=== PATIENT | male | born 1965 | race Caucasian/White ===

== ENCOUNTER → 2016-11-25 | Outpatient (CLI) | payer BC, OTHER ==
--- NOTE | 2016-11-25 16:05 | REP ---
Left knee four views: There are no comparisons. The medial, lateral patellofemoral joint spaces are normally maintained. There are small osteophytes at the medial joint line compatible with mild osteoarthritis. There are no calcifications. There is no fracture or dislocation. I suspect there is an effusion in the suprapatellar pouch. This should be confirmed by clinical palpation. Impression: Mild medial compartment osteoarthritis. Question suprapatellar effusion. This should be confirmed by clinical palpation. Signed by Hilton Santamaria MD 11/25/2016 03:56 P
== END ==
LOC: M ADAMS 15:26
PROVIDERS: ATTEND Physician Assistant Medical
DX: M25.562 Pain in left knee (principal)

== ENCOUNTER 2018-09-27 14:50 | Emergency (ER) | payer BC, OTHER ==
[~2018-09-27] VITALS: Ht 170.2 cm; Wt 111.4 kg
[2018-09-27] MEDS ORDERED: NAPR-837 PO (15:57)
[2018-09-27] MEDS ORDERED: CYCL10TA PO (15:57)
[2018-09-27 16:28] VITALS: BP 154/96
== END 2018-09-27 16:37 | disposition home or self-care (01) ==
LOC: M ED 14:50
DX: M62.830 Muscle spasm of back (principal); M54.5 Low back pain; Z88.0 Allergy status to penicillin

== ENCOUNTER 2018-10-18 11:18 | Emergency (ER) | payer OTHER ==
[~2018-10-18] VITALS: Ht 170.2 cm; Wt 117.4 kg
[~2018-10-18 11:18] MED LIST: CYCL10TA PO; NAPR-837 PO
[2018-10-18 12:00] LABS: BASO % 0.3 % (0.0-1.0); HEMATOCRIT 49.6 % (42.0-52.0); HEMOGLOBIN 16.5 g/dl (13.5-17.5); LYMPH # 1.1 10^3/uL (1.5-4.5); LYMPH % 10.5 % (24.0-44.0); MEAN CORPUSCULAR HEMOGLOBIN 30.4 pg (27.0-33.0); MEAN CORPUSCULAR HGB CONC 33.3 g/dl (32.0-36.5); MEAN CORPUSCULAR VOLUME 91.3 fl (80.0-96.0); MONO # 0.7 10^3/uL (0.0-0.8); MONO % 7.1 % (0.0-5.0); NEUTROPHILS # 8.5 10^3/uL (1.8-7.7); NEUTROPHILS % 81.8 % (36.0-66.0); PLATELET COUNT, AUTOMATED 213 10^3/uL (150-450); RED BLOOD COUNT 5.43 10^6/uL (4.30-6.10); WHITE BLOOD COUNT 10.4 10^3/uL (4.0-10.0)
[2018-10-18 12:28] LABS: ALBUMIN 3.9 GM/DL (3.2-5.2); BILIRUBIN,DIRECT 0.1 MG/DL (0.0-0.2); BILIRUBIN,TOTAL 0.4 MG/DL (0.2-1.0); CALCIUM LEVEL 9.7 MG/DL (8.5-10.1); CREATININE FOR GFR 1.84 MG/DL (0.70-1.30); GLOMERULAR FILTRATION RATE 40.9 (>56); POTASSIUM SERUM 4.6 MEQ/L (3.5-5.1); TOTAL PROTEIN 7.6 GM/DL (6.4-8.2)
[2018-10-18] MEDS ORDERED: NS 1,000 ML IV ONE (12:45)
[2018-10-18] MEDS: GASTROGRAFIN SOLUTION 30ML PO SCH ×2 (14:27→14:39)
[2018-10-18] MEDS ORDERED: MORPHINE 4 MG/ML 1ML VIAL/SYRINGE (J2270) IV ONE (14:45)
[2018-10-18] MEDS ORDERED: ONDANSETRON 4MG/2ML VIAL (J2405) IV ONE (14:45)
[2018-10-18] MEDS ORDERED: FLOM0.4C39 PO (14:55)
[2018-10-18] MEDS ORDERED: ONDA4TAB6 PO (14:55)
[2018-10-18] MEDS ORDERED: PERC5TAB12 PO (14:55)
--- NOTE | 2018-10-18 14:58 | REP ---
CT ABDOMEN AND PELVIS WITHOUT CONTRAST: CT abdomen and pelvis performed without oral or IV contrast. Sagittal and coronal reconstruction images are performed. Visualized lung bases demonstrate no infiltrate. The liver, spleen, adrenals, and pancreas are grossly unremarkable. There is mild right hydroureteronephrosis caused by a 3 mm stone in the distal right ureter. There is no left renal or ureteral calculus and no left hydronephrosis. There is atherosclerotic calcification of the abdominal aorta without aneurysm. There is no adenopathy. There is no free air or free fluid. There is no bowel wall thickening. Small calcification is seen in the head of the pancreas. Scattered diverticula are seen of the colon without acute diverticulitis. No pelvic mass is seen. IMPRESSION: There is a 3 mm calculus in the distal right ureter causing mild right hydroureteronephrosis. Normal appendix. No free air or free fluid. Electronically Signed by Hilton Hurley MD 10/18/2018 04:45 P
[2018-10-18 15:11] VITALS: BP 194/114
== END 2018-10-18 15:26 | disposition home or self-care (01) ==
LOC: M ED 11:18
DX: N20.1 Calculus of ureter (principal); E86.0 Dehydration; Z88.0 Allergy status to penicillin; F17.210 Nicotine dependence, cigarettes, uncomplicated
CPT/HCPCS: 36415; 74176; 80048; 80076; 81001; 83690; 85025; 96361; 96374; 96375; 99284; J2270; J2405; Q9963

== ENCOUNTER → 2018-11-19 | Outpatient (CLI) | payer OTHER ==
[~2018-11-19] MED LIST changes: +FLOM0.4C39 PO; +ONDA4TAB6 PO; +PERC5TAB12 PO
== END ==
LOC: M SMT 13:51
PROVIDERS: ATTEND Nurse Practitioner Women's Health
DX: Z12.5 Encounter for screening for malignant neoplasm of prostate (principal)
CPT/HCPCS: 36415; G0103

== ENCOUNTER → 2018-11-19 | Outpatient (REF) | payer OTHER ==
[2018-11-19 19:17] LABS: APPEARANCE, URINE CLEAR (CLEAR); BACTERIA, URINE AUTO NEGATIVE (NEGATIVE); BILIRUBIN, URINE AUTO NEGATIVE (NEGATIVE); BLOOD, URINE BLOOD 1+ (NEGATIVE); CALCIUM OXALATE CRYSTALS MODERATE; COLOR, URINE YELLOW (YELLOW); GLUCOSE, URINE (UA) AUTO NEGATIVE (NEGATIVE); KETONE, URINE AUTO TRACE mg/dL (NEGATIVE); LEUKOCYTE ESTERASE, URINE AUTO NEGATIVE (NEGATIVE); MUCUS, URINE SMALL (NEGATIVE); NITRITE, URINE AUTO NEGATIVE (NEGATIVE); PROTEIN, URINE AUTO NEGATIVE (NEGATIVE); RBC, URINE AUTO 3 /HPF (0-3); SPECIFIC GRAVITY URINE AUTO 1.023 (1.002-1.035); SQUAMOUS EPITHELIAL CELL UR AU 0 /HPF (0-6); UROBILINOGEN, URINE AUTO 0.2 mg/dL (0.0-2.0); WBC, URINE AUTO 2 /HPF (0-3)
== END ==
LOC: M SMT 18:08
PROVIDERS: ATTEND Nurse Practitioner Women's Health
DX: N13.2 Hydronephrosis with renal and ureteral calculous obstruction (principal)

== ENCOUNTER → 2019-01-22 | Outpatient (CLI) | payer OTHER ==
--- NOTE | 2019-01-23 03:32 | REP ---
Clinical: Paresthesia. Technique: AP, lateral, flexion/extension, swimmer's, bilateral oblique, and open-mouth views of the cervical spine. Findings: Alignment is maintained and there is no evidence for acute fracture / compression injury or subluxation. Moderate focal degenerative disc osteophyte complex at C6-7 and to a lesser extent C5-6 and C7-T1 include early osteophyte formation, endplate sclerosis and minimal disc space narrowing. Remainder examination appears normal. Neural foramen are patent bilaterally. Open mouth view demonstrates normal C1-C2 articulation and odontoid process. Impression: Moderate focal degenerative spondylosis centered at C6-7 including C5-6 and C7-T1. Electronically Signed by Valdemar Cobian MD 01/23/2019 03:23 A
== END ==
LOC: M ADAMS 11:01
PROVIDERS: ATTEND Physician Assistant Medical
DX: M47.812 Spondylosis without myelopathy or radiculopathy, cervical region (principal); M47.813 Spondylosis without myelopathy or radiculopathy, cervicothoracic region

== ENCOUNTER → 2019-01-22 | Outpatient (REF) | payer OTHER ==
[2019-01-22 13:08] LABS: BASO # 0.1 10^3/uL (0.0-0.2); BASO % 0.7 % (0.0-1.0); EOS # 0.2 10^3/uL (0.0-0.5); EOS % 2.2 % (0.0-3.0); HEMATOCRIT 48.2 % (42.0-52.0); HEMOGLOBIN 15.6 g/dl (13.5-17.5); LYMPH # 1.6 10^3/uL (1.5-5.0); LYMPH % 23.6 % (24.0-44.0); MEAN CORPUSCULAR HEMOGLOBIN 29.7 pg (27.0-33.0); MEAN CORPUSCULAR HGB CONC 32.4 g/dl (32.0-36.5); MEAN CORPUSCULAR VOLUME 91.6 fl (80.0-96.0); MONO # 0.7 10^3/uL (0.0-0.8); MONO % 9.7 % (0.0-5.0); NEUTROPHILS # 4.2 10^3/uL (1.5-8.5); NEUTROPHILS % 63.4 % (36.0-66.0); PLATELET COUNT, AUTOMATED 227 10^3/uL (150-450); RED BLOOD COUNT 5.26 10^6/uL (4.30-6.10); WHITE BLOOD COUNT 6.7 10^3/uL (4.0-10.0)
[2019-01-22 13:45] LABS: ALBUMIN 3.7 GM/DL (3.2-5.2); BILIRUBIN,TOTAL 0.5 MG/DL (0.2-1.0); CALCIUM LEVEL 9.2 MG/DL (8.5-10.1); CHOLESTEROL RISK RATIO 4.34 (<5); CREATININE FOR GFR 1.33 MG/DL (0.70-1.30); GLOMERULAR FILTRATION RATE 59.4 (>56); POTASSIUM SERUM 4.7 MEQ/L (3.5-5.1); THYROID STIMULATING HORMONE 1.35 uIU/ML (0.358-3.740); URIC ACID 5.6 MG/DL (3.5-7.2)
== END ==
LOC: M SFHCADAM 10:42
PROVIDERS: ATTEND Physician Assistant Medical
DX: N13.2 Hydronephrosis with renal and ureteral calculous obstruction (principal); F17.210 Nicotine dependence, cigarettes, uncomplicated; E66.01 Morbid (severe) obesity due to excess calories; I10 Essential (primary) hypertension; R20.2 Paresthesia of skin

== ENCOUNTER → 2019-01-28 | Outpatient (CLI) | payer OTHER ==
--- NOTE | 2019-01-30 22:52 | ECHO ---
DATE OF PROCEDURE: 01/29/2019 AGE: 53 GENDER: Male HEIGHT: 67 inches WEIGHT: 250 pounds BODY SURFACE AREA: 2.22 m2 PATIENT LOCATION: Outpatient REFERRING PHYSICIAN: ROBERTO Scott INDICATION: Edema. 2-D MEASUREMENTS: RV: 3.1 cm LV: 5.0 cm Septum: 1.1 cm Posterior wall: 1.1 cm Aortic root: 3.2 cm LA: 4.2 cm LVEF: 75% DOPPLER MEASUREMENTS: AV: 1.5 m/s LVOT: 1.0 m/s LVOT diameter: 2.0 cm MV-E: 97, A: 114, EA ratio: 0.9 Early mitral deceleration time: 225 milliseconds E prime: 9.6, A prime: 13, E/E prime ratio: 10 PCWP: 15.3 mmHg PV: 0.8 m/s Pulmonary artery acceleration time: 113 ms PASP: 28 mmHg IVC: 1.2 cm COMMENTS Normal sinus rhythm with interventricular conduction disturbance. Technically difficult study in light of the patient's body habitus, but some diagnostically useful information was still obtained. M-mode and two-dimensional echocardiography was performed with pulsed, continuous wave, color flow and tissue Doppler studies. Normal left ventricular size with wall thickness upper limits of normal with hyperkinetic wall motion. Mildly dilated left atrium with Doppler evidence of an impairment of LV diastolic function and currently estimated mean left atrial pressure was only mildly increased. Normal right heart chamber sizes and wall motion with currently normal estimated pulmonary arterial pressure. Normal IVC size and collapse against an elevated central venous pressure. Normal appearing and functioning valvular structures. Normal aortic root size. No apparent intracardiac mass or pericardial effusion.
== END ==
LOC: M CARPUL 08:59
PROVIDERS: ATTEND Physician Assistant Medical
DX: N18.3 Chronic kidney disease, stage 3 (moderate) (principal)

== ENCOUNTER → 2019-01-29 | Outpatient (CLI) | payer OTHER ==
--- NOTE | 2019-01-30 07:34 | REP ---
Clinical: Chronic medical renal disease stage III. Technique: Real time galicia scale ultrasound examination using curved array transducer. Findings: Bilateral kidneys are normal in contour, size, echogenicity, and reniform shape without hydronephrosis, nephrolithiasis, cystic or renal mass lesion. Right kidney measures 10.6 x 5.3 x 5.4 cm. Left kidney measures 11.1 x 4.3 x 5.4 cm. The bladder is normal in appearance without wall thickening or mass lesion. Bilateral ureteral jets noted. Impression: Normal renal ultrasound. Electronically Signed by Valdemar Cobian MD 01/30/2019 07:25 A
== END ==
LOC: M RAD 14:44
PROVIDERS: ATTEND Physician Assistant Medical
DX: N18.3 Chronic kidney disease, stage 3 (moderate) (principal); R60.9 Edema, unspecified

== ENCOUNTER → 2019-09-16 | Outpatient (CLI) | payer OTHER ==
[~2019-09-16] MED LIST changes: +CYCL-707 PO; -CYCL10TA PO
--- NOTE | 2019-09-16 19:41 | REP ---
Clinical: Right shoulder pain. Technique: Internal rotation, external rotation, and Y view of the right shoulder. Findings: Acromioclavicular joint appears normal and age-appropriate. Subtle blunting to the calcified glenoid rim and possible early spurring versus overlying loose body. No acute fracture or dislocation. Subacromial space is normal. Overlying soft tissues normal. Impression: Cannot exclude degenerative changes involving the glenoid with possible overlying loose body. If the patient remains symptomatic consider MRI for further investigation. Electronically Signed by Valdemar Cobian MD 09/16/2019 07:32 P
== END ==
LOC: M ADAMS 16:29
PROVIDERS: ATTEND Physician Assistant Medical
DX: M25.511 Pain in right shoulder (principal)

== ENCOUNTER → 2019-09-17 | Outpatient (REF) | payer OTHER ==
[2019-09-17 14:32] LABS: ALBUMIN 3.7 GM/DL (3.2-5.2); BILIRUBIN,TOTAL 0.3 MG/DL (0.2-1.0); CALCIUM LEVEL 9.6 MG/DL (8.5-10.1); CHOLESTEROL RISK RATIO 3.38 (<5); CREATININE FOR GFR 1.33 MG/DL (0.70-1.30); GLOMERULAR FILTRATION RATE 59.2 (>56); POTASSIUM SERUM 4.4 MEQ/L (3.5-5.1); THYROID STIMULATING HORMONE 2.07 uIU/ML (0.358-3.740); TOTAL PROTEIN 7.2 GM/DL (6.4-8.2)
[2019-09-17 15:40] LABS: HEMOGLOBIN A1c 6.4 %
== END ==
LOC: M SFHCADAM 10:07
PROVIDERS: ATTEND Physician Assistant Medical
DX: R73.03 Prediabetes (principal); N18.3 Chronic kidney disease, stage 3 (moderate); E78.2 Mixed hyperlipidemia; I50.32 Chronic diastolic (congestive) heart failure

== ENCOUNTER → 2020-07-02 | Outpatient (REF) | payer OTHER ==
[2020-07-02 14:16] LABS: THYROID STIMULATING HORMONE 1.45 uIU/ML (0.358-3.740); TOTAL 25(OH) VITAMIN D 13.6 NG/ML (30.0-100.0)
[2020-07-02 14:19] LABS: MALB URINE SIEMENS 66.3 MG/L; MAU/CREAT RATIO 15.4 MCG/MG (0.0-30.0)
== END ==
LOC: M SFHCADAM 09:47
PROVIDERS: ATTEND Physician Assistant Medical
DX: R73.03 Prediabetes (principal); I12.9 Hypertensive chronic kidney disease with stage 1 through stage 4 chronic kidney disease, or unspecified chronic kidney disease; F17.210 Nicotine dependence, cigarettes, uncomplicated; N18.31 Chronic kidney disease, stage 3a

== ENCOUNTER → 2020-07-17 | Outpatient (REF) | payer OTHER ==
[2020-07-17 13:09] LABS: BASO # 0.1 10^3/uL (0.0-0.2); BASO % 0.7 % (0.0-1.0); EOS # 0.2 10^3/uL (0.0-0.5); EOS % 2.3 % (0.0-3.0); HEMATOCRIT 51.7 % (42.0-52.0); HEMOGLOBIN 16.5 g/dl (13.5-17.5); LYMPH # 1.8 10^3/uL (1.5-5.0); LYMPH % 23.8 % (24.0-44.0); MEAN CORPUSCULAR HEMOGLOBIN 29.8 pg (27.0-33.0); MEAN CORPUSCULAR HGB CONC 31.9 g/dl (32.0-36.5); MEAN CORPUSCULAR VOLUME 93.3 fl (80.0-96.0); MONO # 0.8 10^3/uL (0.0-0.8); MONO % 11.3 % (2.0-8.0); NEUTROPHILS # 4.5 10^3/uL (1.5-8.5); NEUTROPHILS % 61.6 % (36.0-66.0); PLATELET COUNT, AUTOMATED 227 10^3/uL (150-450); RED BLOOD COUNT 5.54 10^6/uL (4.30-6.10); WHITE BLOOD COUNT 7.3 10^3/uL (4.0-10.0)
[2020-07-17 13:23] LABS: ALBUMIN 3.8 GM/DL (3.2-5.2); BILIRUBIN,TOTAL 0.4 MG/DL (0.2-1.0); CALCIUM LEVEL 9.7 MG/DL (8.5-10.1); CHOLESTEROL RISK RATIO 2.785 (<5); CREATININE FOR GFR 1.34 MG/DL (0.70-1.30); GLOMERULAR FILTRATION RATE 58.5 (>56); POTASSIUM SERUM 4.4 MEQ/L (3.5-5.1); TOTAL PROTEIN 7.2 GM/DL (6.4-8.2)
== END ==
LOC: M SFHCADAM 10:04
PROVIDERS: ATTEND Physician Assistant Medical
DX: I50.32 Chronic diastolic (congestive) heart failure (principal); I11.0 Hypertensive heart disease with heart failure; E55.9 Vitamin D deficiency, unspecified; R73.03 Prediabetes

== ENCOUNTER → 2021-02-19 | Outpatient (REF) | payer OTHER ==
[2021-02-19 17:30] LABS: ALBUMIN 3.5 GM/DL (3.2-5.2); ALT/SGPT 33 U/L (12-78); BILIRUBIN,TOTAL 0.4 MG/DL (0.2-1.0); BLOOD UREA NITROGEN 15 MG/DL (7-18); CALCIUM LEVEL 9.6 MG/DL (8.5-10.1); CARBON DIOXIDE LEVEL 31 MEQ/L (21-32); CHLORIDE LEVEL 104 MEQ/L (98-107); CHOLESTEROL LEVEL 175 MG/DL (<200); CHOLESTEROL RISK RATIO 3.181 (<5); CREATININE FOR GFR 1.18 MG/DL (0.70-1.30); GLOMERULAR FILTRATION RATE > 60.0 (>56); GLUCOSE, FASTING 88 MG/DL (70-100); HDL CHOLESTEROL 55 MG/DL (>40); LDL CHOLESTEROL 99 MG/DL (<100); NON-HDL-C 120 MG/DL; POTASSIUM SERUM 5.3 MEQ/L (3.5-5.1); SODIUM LEVEL 137 MEQ/L (136-145); TOTAL PROTEIN 7.1 GM/DL (6.4-8.2); TRIGLYCERIDES LEVEL 105 MG/DL (<150)
[2021-02-19 17:33] LABS: TOTAL 25(OH) VITAMIN D 30.7 NG/ML (30.0-100.0)
[2021-02-19 17:42] LABS: HEMOGLOBIN A1c 5.8 %
== END ==
LOC: M SFHCADAM 11:31
PROVIDERS: ATTEND Physician Assistant Medical
DX: E78.2 Mixed hyperlipidemia (principal); I10 Essential (primary) hypertension; R73.03 Prediabetes; F17.210 Nicotine dependence, cigarettes, uncomplicated

== ENCOUNTER → 2021-02-22 | Outpatient (REF) | payer OTHER | LOC: M SFHCADAM 08:10 | PROVIDERS: ATTEND Physician Assistant Medical | DX: I10 Essential (primary) hypertension (principal); F17.210 Nicotine dependence, cigarettes, uncomplicated; E78.2 Mixed hyperlipidemia; R73.03 Prediabetes; Z53.9 Procedure and treatment not carried out, unspecified reason ==

== ENCOUNTER → 2021-04-23 | Outpatient (CLI) | payer OTHER ==
[~2021-04-23] MED LIST changes: +ASPI81CH33 PO; +CHLO125TA PO; +LISI20TA33 PO; +SIMV40TA20 PO; +VITA200032 PO
== END ==
LOC: M CARPUL 11:56
PROVIDERS: ATTEND Physician Assistant Medical
DX: I50.32 Chronic diastolic (congestive) heart failure (principal)

== ENCOUNTER → 2021-06-11 | Outpatient (CLI) | payer OTHER | LOC: M LABSMTC 11:25 | PROVIDERS: ATTEND Anesthesiology | DX: Z01.818 Encounter for other preprocedural examination (principal); Z11.52 Encounter for screening for COVID-19 ==

== ENCOUNTER 2021-06-14 09:27 | Day surgery (SDC) | payer OTHER ==
[~2021-06-14] VITALS: Ht 170.2 cm; Wt 114.5 kg
[~2021-06-14 09:27] MED LIST changes: +NS 1,000 ML IV ONE
[2021-06-14] MEDS ORDERED: LIDOCAINE 2% 100MG/5ML SDV (FOR ANES.) As Ordered ONE (10:20)
[2021-06-14] MEDS ORDERED: propofoL 200 MG/20 ML VIAL As Ordered ONE (10:20)
[2021-06-14 11:35] VITALS: BP 135/76
== END 2021-06-14 11:59 | disposition home or self-care (01) ==
LOC: M OPP 09:27
PROVIDERS: ATTEND Internal Medicine Gastroenterology
DX: Z12.11 Encounter for screening for malignant neoplasm of colon (principal); Z80.0 Family history of malignant neoplasm of digestive organs; K62.1 Rectal polyp; K57.30 Diverticulosis of large intestine without perforation or abscess without bleeding; K64.8 Other hemorrhoids; Z79.82 Long term (current) use of aspirin; Z79.899 Other long term (current) drug therapy; Z88.0 Allergy status to penicillin; F17.210 Nicotine dependence, cigarettes, uncomplicated

== ENCOUNTER → 2021-07-08 | Outpatient (REF) | payer OTHER ==
[~2021-07-08] MED LIST changes: -NS 1,000 ML IV ONE
== END ==
LOC: M SFHCDERM 14:15
PROVIDERS: ATTEND Nurse Practitioner Family
DX: C44.319 Basal cell carcinoma of skin of other parts of face (principal)

== ENCOUNTER → 2022-01-20 | Outpatient (REF) | payer OTHER ==
[2022-01-20 13:55] LABS: BASO % 0.7 % (0.0-1.0); EOS # 0.1 10^3/uL (0.0-0.5); EOS % 2.3 % (0.0-3.0); HEMATOCRIT 50.5 % (42.0-52.0); HEMOGLOBIN 16.2 g/dl (13.5-17.5); LYMPH # 1.3 10^3/uL (1.5-5.0); LYMPH % 20.5 % (24.0-44.0); MEAN CORPUSCULAR HEMOGLOBIN 30.1 pg (27.0-33.0); MEAN CORPUSCULAR HGB CONC 32.1 g/dl (32.0-36.5); MEAN CORPUSCULAR VOLUME 93.9 fl (80.0-96.0); MONO # 0.7 10^3/uL (0.0-0.8); MONO % 10.6 % (2.0-8.0); NEUTROPHILS % 65.4 % (36.0-66.0); PLATELET COUNT, AUTOMATED 202 10^3/uL (150-450); RED BLOOD COUNT 5.38 10^6/uL (4.30-6.10); WHITE BLOOD COUNT 6.2 10^3/uL (4.0-10.0)
[2022-01-20 14:26] LABS: ERYTHROCYTE SEDIMENTATION RATE 7 mm/hr (0-20)
[2022-01-20 14:41] LABS: ALBUMIN 3.5 GM/DL (3.2-5.2); ALT/SGPT 23 U/L (12-78); BILIRUBIN,TOTAL 0.4 MG/DL (0.2-1.0); BLOOD UREA NITROGEN 13 MG/DL (7-18); CALCIUM LEVEL 9.6 MG/DL (8.5-10.1); CARBON DIOXIDE LEVEL 31 MEQ/L (21-32); CHLORIDE LEVEL 104 MEQ/L (98-107); CHOLESTEROL LEVEL 202 MG/DL (<200); CHOLESTEROL RISK RATIO 4.208 (<5); COMPLEMENT C3 141 MG/DL (90-180); COMPLEMENT C4 22 MG/DL (10-40); CREATININE FOR GFR 1.24 MG/DL (0.70-1.30); FREE T4 1.14 NG/DL (0.76-1.46); GLOMERULAR FILTRATION RATE > 60.0 (>56); GLUCOSE, FASTING 104 MG/DL (70-100); HDL CHOLESTEROL 48 MG/DL (>40); IRON (FE) 65 UG/DL (65-175); LDL CHOLESTEROL 131 MG/DL (<100); MAGNESIUM LEVEL 2.3 MG/DL (1.8-2.4); NON-HDL-C 154 MG/DL; PERCENT SATURATION 21.4 % (19.7-50.0); POTASSIUM SERUM 4.2 MEQ/L (3.5-5.1); RHEUMATOID FACTOR QUANT < 10.0 IU/ML (<15.0); SODIUM LEVEL 137 MEQ/L (136-145); TOTAL IRON BINDING CAPACITY 304 UG/DL (250-450); TOTAL PROTEIN 6.8 GM/DL (6.4-8.2); TRIGLYCERIDES LEVEL 113 MG/DL (<150)
[2022-01-20 15:09] LABS: TOTAL 25(OH) VITAMIN D 31.4 NG/ML (30.0-100.0)
[2022-01-21 08:36] LABS: VITAMIN B12 LEVEL 268 PG/ML (247-911)
== END ==
LOC: M SFHCADAM 08:06
PROVIDERS: ATTEND Physician Assistant Medical
DX: I10 Essential (primary) hypertension (principal); E78.2 Mixed hyperlipidemia; R73.03 Prediabetes; N18.31 Chronic kidney disease, stage 3a; E55.9 Vitamin D deficiency, unspecified; Z91.19 Patient's noncompliance with other medical treatment and regimen; M25.50 Pain in unspecified joint

== ENCOUNTER → 2024-04-09 | Outpatient (REF) | payer OTHER ==
[~2024-04-09] MED LIST changes: +ONDA-282 PO; -ONDA4TAB6 PO
[2024-04-09 13:46] LABS: BASO % 0.2 % (0.0-1.0); EOS # 0.3 10^3/uL (0.0-0.5); EOS % 1.6 % (0.0-3.0); HEMATOCRIT 41.6 % (42.0-52.0); HEMOGLOBIN 13.8 g/dl (13.5-17.5); LYMPH # 1.5 10^3/uL (1.5-5.0); LYMPH % 9.5 % (24.0-44.0); MEAN CORPUSCULAR HEMOGLOBIN 30.8 pg (27.0-33.0); MEAN CORPUSCULAR HGB CONC 33.2 g/dl (32.0-36.5); MEAN CORPUSCULAR VOLUME 92.9 fl (80.0-96.0); MONO # 1.5 10^3/uL (0.0-0.8); MONO % 9.5 % (2.0-8.0); NEUTROPHILS # 12.5 10^3/uL (1.5-8.5); NEUTROPHILS % 78.7 % (36.0-66.0); PLATELET COUNT, AUTOMATED 342 10^3/uL (150-450); RED BLOOD COUNT 4.48 10^6/uL (4.30-6.10); WHITE BLOOD COUNT 15.9 10^3/uL (4.0-10.0)
[2024-04-09 14:15] LABS: ALBUMIN 3.1 G/DL (3.2-5.2); ALKALINE PHOSPHATASE 80 U/L (40-129); ALT/SGPT 20 U/L (7.0-40); AST/SGOT 12 U/L (<34); BLOOD UREA NITROGEN 20 MG/DL (9-23); CALCIUM LEVEL 10.1 MG/DL (8.3-10.6); CARBON DIOXIDE LEVEL 25 MMOL/L (20-31); CHLORIDE LEVEL 100 MMOL/L (98-107); CHOLESTEROL LEVEL 126 MG/DL (<200); CHOLESTEROL RISK RATIO 2.88 (<5); CREATININE FOR GFR 1.15 MG/DL (0.70-1.30); GLOMERULAR FILTRATION RATE > 60.0 (>49); GLUCOSE, FASTING 85 MG/DL (74-106); HDL CHOLESTEROL 43.6 MG/DL (>40); LDL CHOLESTEROL 59.2 MG/DL (<100); NON-HDL-C 82.4 MG/DL; POTASSIUM SERUM 4.9 MMOL/L (3.5-5.1); SODIUM LEVEL 133 MMOL/L (136-145); THYROID STIMULATING HORMONE 1.505 uIU/ML (0.55-4.78); TOTAL PROTEIN 6.7 G/DL (5.7-8.2); TRIGLYCERIDES LEVEL 116 MG/DL (<150)
[2024-04-09 14:17] LABS: TOTAL 25(OH) VITAMIN D 26.8 NG/ML (20.0-100.0); VITAMIN B12 LEVEL 1099 PG/ML (211-911)
[2024-04-09 15:20] LABS: HEMOGLOBIN A1c 5.9 % (4.0-6.0)
== END ==
LOC: M SFHCADAM 09:37
PROVIDERS: ATTEND Physician Assistant Medical
DX: I25.10 Atherosclerotic heart disease of native coronary artery without angina pectoris (principal); R11.0 Nausea; E55.9 Vitamin D deficiency, unspecified; E66.01 Morbid (severe) obesity due to excess calories; E78.2 Mixed hyperlipidemia; R73.03 Prediabetes; M25.50 Pain in unspecified joint

== ENCOUNTER → 2024-05-10 | Outpatient (REF) | payer OTHER ==
[2024-05-10 18:00] LABS: BASO # 0.1 10^3/uL (0.0-0.2); BASO % 0.9 % (0.0-1.0); EOS # 0.3 10^3/uL (0.0-0.5); EOS % 3.6 % (0.0-3.0); HEMATOCRIT 42.9 % (42.0-52.0); HEMOGLOBIN 13.7 g/dl (13.5-17.5); LYMPH # 1.3 10^3/uL (1.5-5.0); LYMPH % 19.1 % (24.0-44.0); MEAN CORPUSCULAR HEMOGLOBIN 29.8 pg (27.0-33.0); MEAN CORPUSCULAR HGB CONC 31.9 g/dl (32.0-36.5); MEAN CORPUSCULAR VOLUME 93.5 fl (80.0-96.0); MONO % 13.9 % (2.0-8.0); NEUTROPHILS # 4.4 10^3/uL (1.5-8.5); NEUTROPHILS % 62.2 % (36.0-66.0); PLATELET COUNT, AUTOMATED 323 10^3/uL (150-450); RED BLOOD COUNT 4.59 10^6/uL (4.30-6.10)
[2024-05-10 18:21] LABS: BLOOD UREA NITROGEN 11 MG/DL (9-23); CALCIUM LEVEL 9.9 MG/DL (8.3-10.6); CARBON DIOXIDE LEVEL 31 MMOL/L (20-31); CHLORIDE LEVEL 104 MMOL/L (98-107); CREATININE FOR GFR 1.11 MG/DL (0.70-1.30); GLOMERULAR FILTRATION RATE > 60.0 (>49); GLUCOSE, FASTING 105 MG/DL (74-106); SODIUM LEVEL 142 MMOL/L (136-145)
== END ==
LOC: M LABDRWAD 17:23
PROVIDERS: ATTEND Internal Medicine Interventional Cardiology
DX: I10 Essential (primary) hypertension (principal)

== ENCOUNTER → 2024-06-21 | Outpatient (REF) | payer OTHER ==
[2024-06-21 20:00] LABS: BLOOD UREA NITROGEN 17 MG/DL (9-23); CALCIUM LEVEL 9.5 MG/DL (8.3-10.6); CARBON DIOXIDE LEVEL 32 MMOL/L (20-31); CHLORIDE LEVEL 104 MMOL/L (98-107); CREATININE FOR GFR 1.27 MG/DL (0.70-1.30); GLOMERULAR FILTRATION RATE > 60.0 (>49); GLUCOSE, FASTING 106 MG/DL (74-106); POTASSIUM SERUM 4.4 MMOL/L (3.5-5.1); SODIUM LEVEL 140 MMOL/L (136-145)
== END ==
LOC: M LABDRWAD 16:52
PROVIDERS: ATTEND Nurse Practitioner Family
DX: I10 Essential (primary) hypertension (principal); R06.02 Shortness of breath; E78.5 Hyperlipidemia, unspecified; I25.118 Atherosclerotic heart disease of native coronary artery with other forms of angina pectoris

== ENCOUNTER → 2024-07-26 | Outpatient (CLI) | payer OTHER | LOC: M SOG 07:56 | PROVIDERS: ATTEND Orthopaedic Surgery | DX: Z53.9 Procedure and treatment not carried out, unspecified reason (principal) ==

== ENCOUNTER → 2024-08-08 | Outpatient (REF) | payer OTHER ==
[2024-08-08 15:02] LABS: BLOOD UREA NITROGEN 23 MG/DL (9-23); CALCIUM LEVEL 9.3 MG/DL (8.3-10.6); CARBON DIOXIDE LEVEL 31 MMOL/L (20-31); CHLORIDE LEVEL 106 MMOL/L (98-107); CHOLESTEROL LEVEL 137 MG/DL (<200); CHOLESTEROL RISK RATIO 2.44 (<5); CREATININE FOR GFR 1.21 MG/DL (0.70-1.30); GLOMERULAR FILTRATION RATE > 60.0 (>49); GLUCOSE, FASTING 96 MG/DL (74-106); POTASSIUM SERUM 4.5 MMOL/L (3.5-5.1); SODIUM LEVEL 141 MMOL/L (136-145); TRIGLYCERIDES LEVEL 80 MG/DL (<150)
== END ==
LOC: M LABDRWAD 13:07 → M LABDRAWC 13:07
PROVIDERS: ATTEND Nurse Practitioner Family
DX: R06.83 Snoring (principal); R06.02 Shortness of breath

== ENCOUNTER → 2024-08-15 | Outpatient (CLI) | payer OTHER | LOC: M PLARAD 13:08 | PROVIDERS: ATTEND Orthopaedic Surgery | DX: R20.0 Anesthesia of skin (principal); M47.814 Spondylosis without myelopathy or radiculopathy, thoracic region; M48.02 Spinal stenosis, cervical region ==

== ENCOUNTER → 2025-04-01 | Outpatient (REF) | payer OTHER ==
[~2025-04-01] MED LIST changes: -FLOM0.4C39 PO; +TAMS-18 PO
[2025-04-01 18:25] LABS: BASO # 0.1 10^3/uL (0.0-0.2); BASO % 0.7 % (0.0-1.0); EOS # 0.1 10^3/uL (0.0-0.5); EOS % 1.3 % (0.0-3.0); LYMPH # 1.5 10^3/uL (1.5-5.0); LYMPH % 22.4 % (24.0-44.0); MONO # 0.8 10^3/uL (0.0-0.8); MONO % 11.5 % (2.0-8.0); NEUTROPHILS # 4.3 10^3/uL (1.5-8.5); NEUTROPHILS % 64.0 % (36.0-66.0); PLATELET COUNT, AUTOMATED 226 10^3/uL (150-450)
[2025-04-01 18:46] LABS: ALT/SGPT 31.0 U/L (7.0-40); AST/SGOT 30.0 U/L (<34); CALCIUM LEVEL 9.7 MG/DL (8.3-10.6); CARBON DIOXIDE LEVEL 30.0 MMOL/L (20-31); CHLORIDE LEVEL 101.0 MMOL/L (98-107); CHOLESTEROL LEVEL 173.0 MG/DL (<200); CHOLESTEROL RISK RATIO 2.72 (<5); CREATININE FOR GFR 1.35 MG/DL (0.70-1.30); GLOMERULAR FILTRATION RATE 59.4 (>49); LDL CHOLESTEROL 87.8 MG/DL (<100); NON-HDL-C 109.6 MG/DL; POTASSIUM SERUM 4.3 MMOL/L (3.5-5.1); SODIUM LEVEL 140.0 MMOL/L (136-145); TRIGLYCERIDES LEVEL 109.0 MG/DL (<150)
[2025-04-01 18:47] LABS: TOTAL 25(OH) VITAMIN D 31.7 NG/ML (20.0-100.0)
[2025-04-01 18:48] LABS: FREE T4 1.5 NG/DL (0.89-1.76)
[2025-04-01 19:39] LABS: ESTIMATED AVERAGE GLUCOSE 128.0 MG/DL (60-110)
== END ==
LOC: M SFHCADAM 15:01
PROVIDERS: ATTEND Physician Assistant Medical
DX: I25.10 Atherosclerotic heart disease of native coronary artery without angina pectoris (principal); E66.01 Morbid (severe) obesity due to excess calories; F17.210 Nicotine dependence, cigarettes, uncomplicated; R73.03 Prediabetes; N18.31 Chronic kidney disease, stage 3a